=== PATIENT | male | born 1955 | race Caucasian/White ===

== ENCOUNTER → 2017-10-11 | Day surgery (SDC) | payer BC, OTHER ==
[~2017-10-11] MED LIST: Midazolam 1 MG/ML 2 ML SDV ONE; Propofol 200 MG/20 ML SDV ONE; Sodium Chloride 0.9% 10 ML Syringe FLUSH PRN; fentaNYL 100 MCG/2 ML SDV ONE
[2017-10-11] MEDS: Lactated Ringers 1,000 ML IV SCH (14:36)
--- NOTE | 2017-10-11 15:13 | PCM.PN ---
- General Info Date of Service: 10/11/17 - Review of Systems Systems Review Comment:: 62-year-old male referred for his initial screening colonoscopy. He denies any recent rectal bleeding.He also denies any first-degree relatives with colon cancer. He is medically stable to proceed today with no recent significant change in his health status. I have discussed the proposed colonoscopy with the patient. Risks such as but not limited to bleeding and GI injury reviewed. He appears to understand and agrees to proceed. - Patient Data Vitals - Most Recent: Last Vital Signs Temp 98.3 F 10/11/17 14:38 Pulse 55 L 10/11/17 14:38 Resp 20 10/11/17 14:38 BP 139/76 10/11/17 14:38 Pulse Ox 99 10/11/17 14:38 Weight - Most Recent: 122.016 kg Med Orders - Current: Current Medications Lactated Ringer's (Ringers, Lactated) 1,000 mls @ 125 mls/hr IV ASDIRECTED INDY Last Admin: 10/11/17 14:36 Dose: 125 mls/hr Sodium Chloride (Saline Flush) 10 ml FLUSH ASDIRECTED PRN PRN Reason: Keep Vein Open Discontinued Medications Fentanyl (Sublimaze) Confirm Administered Dose 100 mcg .ROUTE .STK-MED ONE Stop: 10/11/17 15:07 Midazolam HCl (Versed 1 Mg/Ml) Confirm Administered Dose 2 mg .ROUTE .STK-MED ONE Stop: 10/11/17 15:08 Propofol (Diprivan 20 Ml) Confirm Administered Dose 200 mg .ROUTE .STK-MED ONE Stop: 10/11/17 15:08 - Problem List Review Problem List Initiated/Reviewed/Updated: Yes - Assessment Assessment:: colon cancer screening - Plan Plan:: colonoscopy
--- NOTE | 2017-10-11 15:59 | PCM.OPNOTE ---
- General Post-Op/Procedure Note Date of Surgery/Procedure: 10/11/17 Operative Procedure(s): colonoscopy with polypectomy Findings: small cecal polyp Moderate sigmoid diverticulosis Pre Op Diagnosis: colon cancer screening Post-Op Diagnosis: colon polyp. Diverticulosis Anesthesia Technique: MAC Primary Surgeon: Luigi Vasques Pathology: cecal polyp Output, Urine Amount: 0 EBL in mLs: 2 Complications: None Condition: Good Free Text/Narrative:: Intake & Output 10/11/17 10/11/17 10/11/17 06:59 14:59 22:59 Intake Total 900 Balance 900
--- NOTE | 2017-10-11 18:32 | OR ---
Date of Procedure: 10/11/2017 PREOPERATIVE DIAGNOSIS: Colon cancer screening. POSTOPERATIVE DIAGNOSES: Cecal polyp and diverticulosis. OPERATIONS PERFORMED: Colonoscopy with polypectomy. INDICATIONS FOR SURGERY: This 62-year-old male is referred for his initial screening colonoscopy. FINDINGS: The patient had a single polyp in the cecum. This was sessile in configuration and 6 mm in size. The patient also had multiple large diverticula in the sigmoid colon, although, these do not appear to be acutely inflamed, or otherwise, complicated at this time. The colon otherwise appeared normal. DESCRIPTION OF PROCEDURE: The patient was taken to the operating room. He was given intravenous sedation, and with him in the left lateral decubitus position, digital rectal exam was performed showing no rectal masses. The Olympus colonoscope was inserted into the rectum. Retroflexed examination of the rectal canal was performed. The scope was then carefully advanced under direct visualization through the entire length of the colon until the cecum was reached. Cecal acquisition was confirmed by noting the normal internal cecal anatomy including the appendiceal orifice and ileocecal valve. The light was also noted to transilluminate the abdominal wall in the right lower quadrant. In the cecum, the above-described polyp was identified and this was removed with a cautery snare. The polyp was retrieved. The scope was then slowly withdrawn, sequentially re-examining the colonic segments until the entire colon and rectum had been fully examined. The scope was removed and the patient was taken from the operating room in satisfactory condition. ESTIMATED BLOOD LOSS: 2 mL. COMPLICATIONS: None. PROGNOSIS: Good. ALESIA Vasques MD /[id number]
== END | disposition home or self-care (01) ==
LOC: LL.SDS 13:42
PROVIDERS: ATTEND Surgery
DX: Z12.11 Encounter for screening for malignant neoplasm of colon (principal); D12.0 Benign neoplasm of cecum; K57.30 Diverticulosis of large intestine without perforation or abscess without bleeding; E11.9 Type 2 diabetes mellitus without complications; K21.9 Gastro-esophageal reflux disease without esophagitis; Z79.84 Long term (current) use of oral hypoglycemic drugs; Z79.899 Other long term (current) drug therapy
CPT/HCPCS: J2250; J2704; J3010; J7120

== ENCOUNTER 2021-03-10 10:16 | Day surgery (SDC) | payer BC ==
[~2021-03-10 10:16] MED LIST changes: +Lactated Ringers 1,000 ML IV SCH; -fentaNYL 100 MCG/2 ML SDV ONE
[2021-03-10] MEDS ORDERED: Propofol 200 MG/20 ML SDV ONE ×2 (11:40→13:03)
[2021-03-10] MEDS ORDERED: Midazolam 1 MG/ML 2 ML SDV ONE (11:40)
--- NOTE | 2021-03-10 11:42 | PCM.PN ---
- General Info Date of Service: 03/10/21 - Review of Systems Systems Review Comment:: 65-year-old male here for colonoscopy. He has a known history of colon polyps and is here for surveillance exam. Patient also scheduled to have excision of a mass in his right hand. The mass is examined and marked. No significant change from recent evaluation was identified. I again reviewed with the patient both procedures and his questions were answered. He agrees to proceed today. - Patient Data Vitals - Most Recent: Last Vital Signs Temp 98.2 F 03/10/21 11:10 Pulse 70 03/10/21 11:10 Resp 20 03/10/21 11:10 BP 147/68 H 03/10/21 11:10 Pulse Ox 98 03/10/21 11:10 Weight - Most Recent: 126.099 kg Lab Results Last 24 Hours: Laboratory Results - last 24 hr 03/10/21 Range/Units 11:02 POC Glucose 114 H (70-99) mg/dL Med Orders - Current: Current Medications Lactated Ringer's (Ringers, Lactated) 1,000 mls @ 125 mls/hr IV ASDIRECTED INDY Last Admin: 03/10/21 11:08 Dose: 125 mls/hr Documented by: Sodium Chloride (Sodium Chloride 0.9% 10 Ml Syringe) 10 ml FLUSH ASDIRECTED PRN PRN Reason: Keep Vein Open Discontinued Medications Midazolam HCl (Midazolam 1 Mg/Ml 2 Ml Sdv) Confirm Administered Dose 2 mg .ROUTE .STK-MED ONE Stop: 03/10/21 09:20 Propofol (Propofol 200 Mg/20 Ml Sdv) Confirm Administered Dose 400 mg .ROUTE .STK-MED ONE Stop: 03/10/21 09:20 - Patient Data Lab Results Last 24 hrs: Laboratory Results - last 24 hr 03/10/21 Range/Units 11:02 POC Glucose 114 H (70-99) mg/dL Sepsis Event Note - Focused Exam Vital Signs: Vital Signs Temp Pulse Resp BP Pulse Ox 03/10/21 11:10 98.2 F 70 20 147/68 H 98 - Problem List Review Problem List Initiated/Reviewed/Updated: Yes - My Orders Last 24 Hours: My Active Orders 03/10/21 10:30 Accu Check [Blood Glucose Check, Bedside] [RC] ONETIME - Assessment Assessment:: History of colon polyps Mass right hand - Plan Plan:: Colonoscopy Excision of mass right hand
[2021-03-10] MEDS ORDERED: Bacitracin Oint 1 GM U/D Packet TOP ONE (12:47)
--- NOTE | 2021-03-10 13:03 | PCM.OPNOTE ---
- General Post-Op/Procedure Note Date of Surgery/Procedure: 03/10/21 Operative Procedure(s): Colonoscopy with Polypectomy. Excision of mass right hand Findings: Multiple colon polyps Moderate Sigmoid Diverticulosis Mass Right hand Pre Op Diagnosis: History of colon polyps. Right hand mass Post-Op Diagnosis: Colon Polyps. Sigmoid Diverticulosis. Mass Right Hand Anesthesia Technique: Local, MAC Primary Surgeon: Luigi Vasques Pathology: Colon Polyps Mass right hand EBL in mLs: 10 Complications: None Condition: Good
--- NOTE | 2021-03-10 16:16 | OR ---
Date of Procedure: 03/10/2021 PREOPERATIVE DIAGNOSIS: History of colon polyps and mass, right hand. POSTOPERATIVE DIAGNOSES: Colon polyps, sigmoid diverticulosis and mass, right hand. OPERATIONS PERFORMED: Colonoscopy with polypectomy and excision of right hand mass. INDICATIONS FOR SURGERY: This 65-year-old male comes for surveillance colonoscopy. He has a known history of colon polyps. He has also developed a mass on the right hand, which he wishes removed. FINDINGS: During colonoscopy, polyps in 3 areas were noted. There is a 12 mm pedunculated polyp at the splenic flexure, a 5-mm sessile polyp at the hepatic flexure, and a cluster of 2 polyps in the cecum, these are sessile in configuration and are 5 to 9 mm in size. The patient also has a moderate degree of diverticulosis of the sigmoid region. Located on the dorsal aspect of the ulnar side of the patient's right hand is a soft tissue mass located beneath the skin. This does not invade surrounding tissue, has a smooth surface and is 2 cm in size. DESCRIPTION OF PROCEDURE: The patient was taken to the operating room. He was given intravenous sedation, and with him in the left lateral decubitus position, digital rectal exam was performed showing no rectal masses. The Olympus colonoscope was inserted into the rectum. Retroflexed examination of the rectal canal was performed. The scope was then carefully advanced under direct visualization through the entire length of the colon until the cecum was reached. Cecal acquisition was confirmed by noting normal internal cecal anatomy including the appendiceal orifice and the ileocecal valve. In the cecum, the above-described two polyps were identified. These were removed with a cautery snare and retrieved. They were submitted as a single specimen. After examining the cecum, the scope was slowly withdrawn sequentially re-examining the colonic segments. At the hepatic flexure and at the splenic flexure, the above-described polyps were each identified, removed with a cautery snare and retrieved. Examination revealed diverticulosis but no other abnormalities of the colon and there was no sign of complication or bleeding. The scope was removed and attention was turned to the patient's right hand. The site of the mass was re-identified as had been marked and this area was sterilely prepped and draped. The skin overlying the palpable mass was infiltrated with Xylocaine with epinephrine and then a transverse incision was made over the mass. Careful blunt dissection was used to free the mass from the surrounding tissue, and then using gentle traction, the mass was able to be brought fully into view. Small remaining attachments were bluntly divided and the mass was removed intact. It was submitted for specimen pathology. The wound was closed approximating the skin edges with a running 4-0 Vicryl subcuticular stitch, Steri-Strips and benzoin were applied followed by a sterile bulky dressing. The patient tolerated the procedure well and left the operating room in satisfactory condition. ESTIMATED BLOOD LOSS: 10 mL. COMPLICATIONS: None. PROGNOSIS: Good. ALESIA Vasques MD /[id number]
== END 2021-03-10 14:02 | disposition home or self-care (01) ==
LOC: LL.SDS 10:16
PROVIDERS: ATTEND Surgery
DX: D12.3 Benign neoplasm of transverse colon (principal); L72.11 Pilar cyst; D12.0 Benign neoplasm of cecum; M72.0 Palmar fascial fibromatosis [Dupuytren]; E78.2 Mixed hyperlipidemia; E11.9 Type 2 diabetes mellitus without complications; L72.0 Epidermal cyst; Z79.84 Long term (current) use of oral hypoglycemic drugs; Z79.899 Other long term (current) drug therapy; E66.9 Obesity, unspecified; Z68.41 Body mass index [BMI] 40.0-44.9, adult
CPT/HCPCS: 00812; 01830; 82947; J2250; J2704; J7120